=== PATIENT | female | born 1945 | race Caucasian/White ===

== ENCOUNTER 2021-08-23 11:13 | Outpatient (CLI) | payer MEDICARE, OTHER | END 2021-08-23 11:14 | disposition home or self-care (01) | LOC: CSHRAD 11:13 | PROVIDERS: ATTEND Internal Medicine Rheumatology | DX: M54.2 Cervicalgia (principal); M25.572 Pain in left ankle and joints of left foot; M25.571 Pain in right ankle and joints of right foot; M47.812 Spondylosis without myelopathy or radiculopathy, cervical region; Z98.1 Arthrodesis status; Z98.890 Other specified postprocedural states; M43.12 Spondylolisthesis, cervical region; M48.02 Spinal stenosis, cervical region; M19.072 Primary osteoarthritis, left ankle and foot; M19.071 Primary osteoarthritis, right ankle and foot | CPT/HCPCS: 72052 ==